=== PATIENT | female | born 1985 | race Caucasian/White ===

== ENCOUNTER → 2021-11-07 | Outpatient (CLI) | payer BC ==
--- NOTE | 2021-11-07 10:15 | Diagnostic Imaging Report ---
INDICATION: Left hip pain. COMPARISON: No previous exam for comparison. FINDINGS: Post surgical changes are noted with a reconstruction plate and bone screws along the acetabular rim. 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 Hypertrophic changes are seen about the hip. 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 Dictated by: Dictated on workstation # [id number]
== END ==
LOC: ORTHO 08:39
PROVIDERS: ATTEND Orthopaedic Surgery
DX: M16.12 Unilateral primary osteoarthritis, left hip (principal)
CPT/HCPCS: 73502; G0463; 99213